=== PATIENT | male | born 1965 | race Caucasian/White ===

== ENCOUNTER 2017-08-29 12:04 | Emergency (ER) | payer SELFPAY ==
[~2017-08-29] VITALS: Ht 182.9 cm; Wt 80.0 kg
[~2017-08-29 12:04] MED LIST: BC FPOW12 PO
[2017-08-29 12:08] VITALS: BP 159/98; PULSE 108; RESP 20; TEMP 97.7; O2SAT 98
[2017-08-29] MEDS ORDERED: LISI10TA3 PO (13:46)
[2017-08-29] MEDS ORDERED: HYDR25TA5 PO ×2 (13:46→14:23)
--- NOTE | 2017-08-29 13:50 | PD ---
HPI Chief Complaint: Cardiac Complaint Time Seen by Provider: 13:41 Travel History International Travel<30 days: No Contact w/Intl Traveler<30days: No Traveled to known affect area: No History of Present Illness HPI Patient has a history of high blood pressure and he has been running out of his lisinopril and hydrochlorothiazide over the last 2 weeks. Patient has no specific complaints at this present time, requesting medication refill. Patient states that in the past he has had swelling to his feet and lower extremities but but currently he does not have that. Patient also did not denies having a primary care physician currently. No nondrug allergies Past medical history significant for hypertension PFSH Past Medical History Autoimmune Disease: No Cancer: No Cardiovascular Problems: No Diminished Hearing: No Endocrine: No Gastrointestinal Disorders: Yes ( HX OF HEME POSITIVE STOOLS) Genitourinary: No Hypertension: Yes Musculoskeletal: Yes (CHRONIC BACK PAIN) Neurologic: No Psychiatric: No Reproductive: No Respiratory: No Tetanus Vaccination: > 5 Years Past Surgical History Surgical History: No Previous Surgery Other Surgery: No Social History Alcohol Use: No Tobacco Use: No (STOPPED 1993. USE TO SMOKE 2 PPD/ STARTED AGE 14) Substance Use: No Allergies-Medications (Allergen,Severity, Reaction): Coded Allergies: No Known Allergies (Verified , 10/05/14) Reported Meds & Prescriptions Reported Meds & Active Scripts Active Reported Hydrochlorothiazide 25 Mg Tab 25 Mg PO DAILY Lisinopril 10 Mg Tab 10 Mg PO DAILY Review of Systems Except as stated in HPI: all other systems reviewed are Neg General / Constitutional: No: Fever Eyes: No: Visual changes HENT: No: Headaches Cardiovascular: No: Chest Pain or Discomfort Respiratory: No: Shortness of Breath Gastrointestinal: No: Abdominal Pain Genitourinary: No: Dysuria Musculoskeletal: No: Pain Skin: No Rash Neurologic: No: Weakness Psychiatric: No: Depression Endocrine: No: Polydipsia Hematologic/Lymphatic: No: Easy Bruising Physical Exam Narrative GENERAL: Well-nourished, well-developed patient in no apparent distress. SKIN: Warm and dry. HEAD: Atraumatic. Normocephalic. EYES: Pupils equal and round. No scleral icterus. No injection or drainage. ENT: No nasal bleeding or discharge. Mucous membranes pink and moist. NECK: Trachea midline. No JVD. CARDIOVASCULAR: Regular rate and rhythm. no rubs or gallops RESPIRATORY: No accessory muscle use. Clear to auscultation. Breath sounds equal bilaterally. GASTROINTESTINAL: Abdomen soft, non-tender, nondistended. No rebound or guarding MUSCULOSKELETAL: Extremities without clubbing, cyanosis, or edema. No obvious deformities. NEUROLOGICAL: Awake and alert. No obvious cranial nerve deficits. Motor grossly within normal limits. Five out of 5 muscle strength in the arms and legs. Normal speech. PSYCHIATRIC: Appropriate mood and affect; insight and judgment normal. Data Data Last Documented VS Vital Signs Date Time Temp Pulse Resp B/P (MAP) Pulse Ox O2 Delivery O2 Flow Rate FiO2 08/29/17 12:08 97.7 108 20 159/98 (118) 98 MDM Medical Decision Making Medical Screen Exam Complete: Yes Emergency Medical Condition: Yes Medical Record Reviewed: Yes Differential Diagnosis Hypertension versus hypertensive urgency versus medication refill Narrative Course After evaluation the patient is not tachycardic, does not have any evidence of severe malignant hyper tension, and the pulse ox on the patient which has an excellent pleth wave reads between 96 and 99 on room air which is consistent with a normal pulse ox without evidence of hypoxemia Diagnosis Primary Impression: Medication refill Additional Impression: Hypertension Referrals: [facility] For further medical maintenance care Patient Instructions: General Instructions, Hypertension (ED) Scripts Hydrochlorothiazide (Hydrochlorothiazide) 25 Mg Tab 25 MG PO DAILY, #30 TAB 1 Refill Prov: Altaf Sommer MD 08/29/17 Lisinopril (Lisinopril) 20 Mg Tab 20 MG PO DAILY, #30 TAB 1 Refill Prov: Altaf Sommer MD 08/29/17 Disposition: 01 DISCHARGE HOME Condition: Stable Altaf Sommer MD August 29, 2017 13:50
[2017-08-29] MEDS ORDERED: LISI-515 PO (14:23)
[2017-08-29] MEDS ORDERED: cloNIDine HCL 0.1 MG TAB PO ONE (14:30)
== END 2017-08-29 14:51 | disposition home or self-care (01) ==
LOC: NEPD 12:04
DX: I10 Essential (primary) hypertension (principal); Z76.0 Encounter for issue of repeat prescription; Z87.891 Personal history of nicotine dependence
CPT/HCPCS: 99281